=== PATIENT | female | born 1930 | race Caucasian/White ===

== ENCOUNTER 2016-08-19 13:00 | Inpatient (IN) | payer OTHER ==
[2016-08-19 13:52] LABS: MANUAL DIFF NEEDED? NO
--- NOTE | 2016-08-19 13:57 | PROVIDER DOCUMENTATION ---
HPI-Respiratory General - General Chief Complaint: Shortness of Breath Stated Complaint: SOB Time Seen by Provider: 08/19/16 13:48 Source: patient Allergies/Adverse Reactions: Patient Allergies Allergy/AdvReac Type Severity Reaction Status Date / Time codeine Allergy Severe ITCHING Verified 01/06/16 12:28 hydrocodone bitartrate * Allergy Severe ITCHING Verified 01/06/16 12:28 [From Lorcet ] morphine Allergy Severe ITCHING Verified 01/06/16 12:28 Sulfa (Sulfonamide Allergy Severe NAUSEA/VOMI Verified 01/06/16 12:28 Antibiotics) TING Home Medications: Amitriptyline [Elavil] 25 mg PO TID 05/26/13 Atorvastatin Calcium [Lipitor] 80 mg PO HS 05/26/13 Fluticasone/Salmeterol [Advair 500-50 Diskus] 2 puff INH BID 05/26/13 Omeprazole [Prilosec] 20 mg PO BID 05/26/13 Amlodipine Besylate [Norvasc] 5 mg PO DAILY 09/10/14 Aspirin [Ecotrin] 81 mg PO DAILY 09/10/14 Isosorbide Mononitrate E.r. [Imdur] 30 mg PO DAILY 09/10/14 Carvedilol 6.25 mg PO DAILY 08/25/15 Albuterol Sulfate Inhaler [Ventolin Hfa] 2 puff INH PRN PRN 07/20/16 Clopidogrel Bisulfate [Plavix] 75 mg PO DAILY 07/20/16 Diphenhydramine [Benadryl] 25 mg PO BID 07/20/16 LISINOpril [Prinivil] 40 mg PO DAILY 07/20/16 Levothyroxine Sodium [Synthroid] 137 mcg PO DAILY 07/20/16 - History of Present Illness-Resp Nature of Presenting Problem: 86 yo F presents to the ER with complaint of cough, SOB, lower leg edema, and painful inspiration x4 days. States she has pain when she takes a deep breath, the pain radiates to her back. Also has tenderness to palpation in her chest. Wears oxygen at home. Onset/Duration: reports: 4 days ago Cough Quality/Degree: reports: moderate, dry cough Associated Symptoms: reports: chest pain/soreness, cough, fever/chills, hurts to breathe, shortness of breath, short of breath Review of Systems - Adult - REVIEW OF SYSTEMS - ADULT Constitutional: reports: chills. denies: fever Eyes: reports: no symptoms reported Ears, Nose, Mouth & Throat: reports: no symptoms reported Cardiovascular: denies: chest pain, palpitations Respiratory: reports: cough, shortness of breath Gastrointestinal: denies: diarrhea, nausea, vomiting Genitourinary: reports: no symptoms reported Musculoskeletal: reports: no symptoms reported Integumentary: reports: no symptoms reported Neurological: reports: no symptoms reported Psychiatric: reports: no symptoms reported Endocrine: reports: no symptoms reported Hematologic/Lymphatic: reports: no symptoms reported Allergic/Immunologic: reports: no symptoms reported All Other Systems: Reviewed and Negative Past History - Adult - PAST MEDICAL HISTORY-ADULT Review of Records: reports: Nursing Assessment Review, Medications Reviewed Cardiovascular: reports: HTN, hyperlipidemia Respiratory: reports: asthma, COPD, sleep apnea Genitourinary: reports: kidney stones (hx of) Musculoskeletal: reports: osteoporosis Endocrine/Immune: reports: thyroid disorder - PRIOR SURGERIES/PROCEDURES Surgical/Procedure History: reports: recent surgery (Stents), appendectomy, cholecystectomy, hysterectomy, , joint replacement (Total knee replacement), other (Cataract Sx; carpal tunnel; bladder tac; cysts removed from abdomen) - IMMUNIZATION STATUS Childhood Immunizations: See Nurse Assessment Flu Vaccine: See Nurse Assessment - FAMILY HISTORY Family History: reviewed, not pertinent Physical Exam-General - PHYSICAL EXAM-ADULT Initial Vital Signs Reviewed: Yes - CONSTITUTIONAL General Appearance: alert, no apparent distress - EYES Eyes: PERRL/EOMI, pink conjunctivae - HEAD, EARS, NOSE, MOUTH & THROAT HENMT: normocephalic/atraumatic, normal ENT inspection - NECK Neck: supple, normal inspection - RESPIRATORY Respiratory: no respiratory distress, pain on inspiration - CARDIOVASCULAR Cardiovascular: normal peripheral pulses, regular rate, rhythm - GASTROINTESTINAL (ABDOMEN) Abdominal Exam: normal bowel sounds, non tender, soft - MUSCULOSKELETAL Back Exam: no CVA tenderness, no vertebral tenderness Extremity: normal gait, normal inspection - SKIN Integumentary: normal color, warm/dry - NEUROLOGIC Neurologic: grossly normal, no motor/sensory deficits - PSYCHIATRIC Psych/Mental Status: normal mood/affect, normal thought content, normal thought process, oriented x 3 Progress - PLAN OF CARE/RESULTS Progress/Plan/Lab Results: Vital Signs Temp Pulse Resp BP Pulse Ox 08/19/16 13:03 97.8 F 86 20 155/86 96 codeine Allergy (Severe, Verified 01/06/16 12:28) ITCHING hydrocodone bitartrate * [From [place] ] Allergy (Severe, Verified 12:28) ITCHING morphine Allergy (Severe, Verified 01/06/16 12:28) ITCHING Sulfa (Sulfonamide Antibiotics) Allergy (Severe, Verified 01/06/16 12:28) NAUSEA/VOMITING Amitriptyline [Elavil] 25 mg PO TID 05/26/13 Atorvastatin Calcium [Lipitor] 80 mg PO HS 05/26/13 Fluticasone/Salmeterol [Advair 500-50 Diskus] 2 puff INH BID 05/26/13 Omeprazole [Prilosec] 20 mg PO BID 05/26/13 Amlodipine Besylate [Norvasc] 5 mg PO DAILY 09/10/14 Aspirin [Ecotrin] 81 mg PO DAILY 09/10/14 Isosorbide Mononitrate E.r. [Imdur] 30 mg PO DAILY 09/10/14 Carvedilol 6.25 mg PO DAILY 08/25/15 Albuterol Sulfate Inhaler [Ventolin Hfa] 2 puff INH PRN PRN 07/20/16 Clopidogrel Bisulfate [Plavix] 75 mg PO DAILY 07/20/16 Diphenhydramine [Benadryl] 25 mg PO BID 07/20/16 LISINOpril [Prinivil] 40 mg PO DAILY 07/20/16 Levothyroxine Sodium [Synthroid] 137 mcg PO DAILY 07/20/16 Tramadol HCl [Ultram] 50 mg PO Q4H PRN PRN #15 tablet 07/26/16 Laboratory 08/19/16 08/19/16 13:51 13:51 WBC 11.01 H RBC 3.90 L Hgb 12.3 Hct 38.4 MCV 98.5 MCH 31.5 H MCHC 32.0 L RDW Std Deviation 13.1 Plt Count 535 H MPV 10.1 Immature Gran % (Auto) 1.9 H Neut % (Auto) 57.3 Lymph % (Auto) 26.2 [place] % (Auto) 8.9 Eos % (Auto) 4.4 Baso % (Auto) 1.3 H Immature Gran # (Auto) 0.21 H Neut # 6.32 Lymph # 2.88 [place] # 0.98 H Eos # 0.48 Baso # 0.14 Sodium 133 L Potassium 3.8 Chloride 98 Carbon Dioxide 23 L Anion Gap 12 BUN 9 Creatinine 0.6 Estimated GFR/1.73 m2 > 60 BUN/Creatinine Ratio 15 Glucose 101 Calculated Osmolality 265 Calcium 8.7 L Magnesium 1.6 Total Bilirubin 0.30 AST 40 H ALT 36 Alkaline Phosphatase 93 Creatine Kinase 50 Total Protein 6.5 Albumin 2.8 L Globulin 4.0 Albumin/Globulin Ratio 1.0 Orders Category Date Time Status Cardiac Monitoring DIRECTED Care 08/19/16 13:12 Active Oxygen Therapy- ED Nursing DIRECTED Care 08/19/16 13:12 Active CHEST-2 VIEWS [RAD] Stat Exams 08/19/16 13:12 Ordered BNP [PRO B-NATRIURETIC PEPTIDE] Stat Lab 08/19/16 13:51 Received CBC WITH DIFF [HEME] Stat Lab 08/19/16 13:51 Completed CK PROFILE [SP CHEM] Stat Lab 08/19/16 13:51 Completed COMPREHENSIVE METABOLIC PANEL [CHEM] Stat Lab 08/19/16 13:[address] D-D[address] [COAG] Stat Lab 08/19/16 13:51 Received MAGNESIUM [CHEM] Stat Lab 08/19/16 13:51 Completed TROPONIN T Stat Lab 08/19/16 13:51 Received EKG [EKG] Stat Ther 08/19/16 13:10 Ordered - XRAY 1 XRAY Study: Chest Impression: Abnormal (infiltrate, per Dr. Rincon) - CONSULTS/PCP/HOSPITALIST Notification #1 *Consult/PCP/Hospitalist*: Dr. Carpenter Time Discussed: 14:25 Consult Disposition: Admit Departure - Departure Time of Disposition Order: 14:29 DIAGNOSIS: Pleurisy Disposition: ADMITTED INPATIENT 09 Certified Medical Emergency: Emergent Condition: Stable Attestation - Scribe Verification/Attestation Scribe:: Mikayla Wu Acting as Scribe for:: Jordon Rincon Scribe documention review:: This chart was documented by a scribe and accurately reflects the service the provider performed and the decisions made by the provider.
[2016-08-19 14:11] LABS: AGAP 12; ALBUMIN 2.8 g/dL (3.5-5.0); ALKALINE PHOSPHATASE 93 U/L (32-104); BUN 9 mg/dL (8-22); CALCIUM 8.7 mg/dL (8.8-10.2); CHLORIDE 98 mmol/L (98-107); CK PROFILE 50 U/L (24-173); COSMO 265; GOT 40 U/L (10-30); GPT 36 U/L (10-36); MAGNESIUM 1.6 mg/dL (1.5-2.7); POTASSIUM 3.8 mmol/L (3.5-5.1); SODIUM 133 mmol/L (136-145); TCO2 23 mmol/L (25-35); TOTAL PROTEIN 6.5 g/dL (6.3-8.3)
[2016-08-19 14:21] LABS: BASO% 1.3 % (0.0-0.8); EOS# 0.48 X1000 (0.0-0.7); EOS% 4.4 % (0.0-10.0); HEMATOCRIT 38.4 % (37.0-47.0); HEMOGLOBIN 12.3 g/dL (12.0-16.0); IMM GRAN# 0.21 X1000 (0.0-0.04); IMM GRAN% 1.9 % (0.0-0.5); LYMPH# 2.88 X1000 (1.2-3.4); LYMPH% 26.2 % (20.5-51.1); MCH 31.5 PG (27-31); MCV 98.5 FL (81-99); MONO# 0.98 X1000 (0.11-0.59); MONO% 8.9 % (1.7-9.3); MPV 10.1 FL (7.4-10.4); NEUT% 57.3 % (42.2-75.2); PLT 535 X1000 (130-400)
[2016-08-19] MEDS ORDERED: VENTOLIN HFA INH PRN (14:29)
[2016-08-19] MEDS ORDERED: NS 1,000 ML IV SCH ×2 (14:30→17:00)
--- NOTE | 2016-08-19 15:24 | Diag Imaging Result Document ---
PROCEDURE NAME: CHEST-2 VIEWS - 08/19/2016 TWO VIEWS OF THE CHEST: FINDINGS: There are patchy alveolar opacities present in the right lower lobe, which were not present on 06/05/2016. IMPRESSION: Bronchopneumonia, right lower lobe. Advise followup until clear.
[2016-08-19] MEDS: ELAVIL PO SCH (16:11)
[2016-08-19] MEDS: FIORICET PO PRN ×2 (16:27→23:33)
[2016-08-19] MEDS: LEVAQUIN 750 MG/D5W 150 ML IV SCH (17:40)
--- NOTE | 2016-08-19 18:06 | HISTORY AND PHYSICAL ---
PRIMARY CARE PHYSICIAN: Dr. Akin Padilla. CHIEF COMPLAINT: Shortness of breath. HISTORY OF PRESENT ILLNESS: This is a 86-year-old female with a history of COPD, obstructive sleep apnea, hypertension. She presented to the emergency room complaining of cough, increasing dyspnea, with right-sided chest pain that radiates around to her back. She states this started about a week ago, and over the last 3 days symptoms have increased. During the night and then up into the morning today that she slept sat up in a recliner, and just dozed. She does normally wear oxygen at 2 L. She did not have to increase her oxygen flow. She does state that she has had episodes of freezing, some body aches, and then she will sweat and feel better. Over the last 24 hours she has developed a frontal headache with increased sinus drainage. Her chest x- ray revealed a right lower lobe bronchopneumonia. She is being admitted for further evaluation and treatment. PAST MEDICAL HISTORY: Asthma, CHF, COPD, hypertension, kidney stones, obstructive sleep apnea, hypothyroid. PAST SURGICAL HISTORY: Right total knee, hysterectomy, cholecystectomy. SOCIAL HISTORY: She denies alcohol, tobacco, or illicit drug use. ALLERGIES: Codeine, hydrocodone, morphine, and sulfa. HOME MEDICATIONS: A list will be obtained. PHYSICAL EXAMINATION: GENERAL: This is an 86-year-old female, who is sitting in the bed with no distress. VITAL SIGNS: Blood pressure is 140/81, with a heart rate of 84, respirations are 18, temperature is 97.8 degrees oral, with oxygen saturations of 98% on 2 L nasal cannula. CARDIOVASCULAR: Regular rate and rhythm. S1 and S2 appreciated. PULMONARY: Breath sounds are distant. She does have some crackles on the right with no increased work of breathing noted. Chest wall is tender to palpation about the area of the right breast. GASTROINTESTINAL: Abdomen is soft, nontender, nondistended. Bowel sounds in all 4 quadrants. BACK: No CVAT. No spine tenderness. MUSCULOSKELETAL: Good range of motion of joints. EXTREMITIES: No clubbing, cyanosis, or edema. Pulses are palpable x4. Calves are nontender. SKIN: Warm and dry. NEUROLOGIC: She is alert and oriented. DIAGNOSTICS: Labs: WBC is 11.01, with hemoglobin 12.3, hematocrit 38.4, and platelets of 535,000. Sodium is 133, potassium 3.8, BUN 9, creatinine 0.6, with a glucose of 101. Her D-dimer is 2.70. Troponin is 0.112, with a proBNP of 2178. ASSESSMENT AND PLAN: 1. Right lower lobe pneumonia. 2. Chronic obstructive pulmonary disease with moderate exacerbation. 3. Leukocytosis. 4. Elevated D-dimer. 5. Elevated troponin. 6. Headache, questionable sinusitis. 7. Hypothyroid. She will be admitted to the hospital. She will continue with supplemental oxygen. We will start breathing treatments q.4 hours. We will continue her home inhalers. We will trend troponins. Cardiology will be consulted if necessary, and consult Cardiology She will be placed on telemetry. CTA pulmonary will be obtained. We will obtain blood cultures. We will begin antibiotic coverage with Levaquin. If necessary antibiotics can be changed according to sensitivities. For DVT prophylaxis we will use SCDs, and for GI prophylaxis we will continue her Prilosec. Further treatments pending hospital course. Dictated by MARK Capps for Osmany Carpenter MD
[2016-08-19] MEDS: DUONEB (A & A) INH SCH ×2 (19:39→23:04)
[2016-08-19] MEDS: BENADRYL PO SCH (22:51)
[2016-08-19] MEDS: LIPITOR PO SCH (22:51)
[2016-08-19] MEDS: PRILOSEC PO SCH (22:52)
[2016-08-19] MEDS: TESSALON PO PRN (23:33)
[2016-08-20] MEDS: DUONEB (A & A) INH SCH ×6 (03:38→20:18)
[2016-08-20] MEDS: ULTRAM PO PRN (04:08)
[2016-08-20] MEDS ORDERED: BLISTEX MEDICATED BERRY LIP BALM TOP PRN (04:10)
[2016-08-20] MEDS: PRILOSEC PO SCH ×2 (06:52→21:00)
[2016-08-20] MEDS: SYNTHROID PO SCH ×2 (06:52)
[2016-08-20] MEDS ORDERED: SYNTHROID PO SCH (09:00)
[2016-08-20 09:35] LABS: HEMATOCRIT 34.6 % (37.0-47.0); HEMOGLOBIN 11.5 g/dL (12.0-16.0); MCHC 33.2 g/dL (33-37); MCV 93.3 FL (81-99); MPV 9.3 FL (7.4-10.4); RBC 3.71 XMIL (4.2-5.4)
[2016-08-20 10:13] LABS: AGAP 10; ALBUMIN 2.7 g/dL (3.5-5.0); ALKALINE PHOSPHATASE 77 U/L (32-104); BUN 4 mg/dL (8-22); CALCIUM 8.1 mg/dL (8.8-10.2); CHLORIDE 95 mmol/L (98-107); CK PROFILE 45 U/L (24-173); COSMO 261; GOT 32 U/L (10-30); GPT 27 U/L (10-36); POTASSIUM 3.4 mmol/L (3.5-5.1); SODIUM 131 mmol/L (136-145); TCO2 26 mmol/L (25-35); TOTAL PROTEIN 5.1 g/dL (6.3-8.3)
[2016-08-20] MEDS: BENADRYL PO SCH (10:37)
[2016-08-20] MEDS: IMDUR PO SCH (10:37)
[2016-08-20] MEDS: PLAVIX PO SCH (10:37)
[2016-08-20] MEDS: ASPIRIN EC PO SCH (10:37)
[2016-08-20] MEDS: PRINIVIL PO SCH (10:38)
[2016-08-20] MEDS: NORVASC PO SCH (10:38)
[2016-08-20] MEDS: COREG PO SCH (10:38)
[2016-08-20] MEDS: ELAVIL PO SCH ×3 (10:38→17:43)
--- NOTE | 2016-08-20 11:00 | Diag Imaging Result Document ---
PROCEDURE NAME: ANGIOGRAM/PULMONARY ARTERIES - 08/19/2016 CT OF THE CHEST WITH INTRAVENOUS CONTRAST: FINDINGS: The right brachiocephalic artery appears to extend to some extent into the base of the neck with the subclavian looping back inferiorly. The esophagus is distended throughout its course with an air fluid level inferiorly. There is a hiatal hernia. Fluid is present in the stomach. There is considerable beam-hardening artifact and respiratory motion, but there are no definite central pulmonary arterial filling defects. There are patchy ill-defined opacities, particularly in the right upper lobe, the lingula, and both lower lobes. There is dense alveolar opacification present in the right base. Some emphysematous blebs are present in the left posterior costophrenic sulcus. The heart is enlarged with enlargement of the left atrium and ventricle. There is calcification in the mitral valve annulus and there is also some dilatation of the root of the aorta. There is no evidence of dissection. The ascending aorta measures up to 4 cm. There has been previous sternotomy. IMPRESSION: No definite evidence of pulmonary emboli. Dilatation of the esophagus which may be patulous. The possibility of aspiration pneumonia cannot be excluded.
--- NOTE | 2016-08-20 15:57 | PROGRESS NOTE ---
DATE: 08/20/2016 SUBJECTIVE: The patient states that she is breathing a little better, although she has had a persistent cough that is wearing her out. She denies palpitations, dizziness, any nausea or vomiting. OBJECTIVE: Vital Signs: Blood pressure is 156/77 with a heart rate of 80, respirations are 20, temperature is 98.2 degrees oral with oxygen saturation of 96-99% on 2 L nasal cannula. Cardiovascular: Regular rate and rhythm. S1 and S2 appreciated. Pulmonary: Breath sounds are distant. She has some crackles on the right with no increased work of breathing noted. Her chest wall continues to be tender to palpation at the area of the right breast. Gastrointestinal: Abdomen is soft, nontender, nondistended with bowel sounds in all 4 quadrants. Extremities: No clubbing, cyanosis, or edema. Pulses are palpable x4. Calves are nontender. DIAGNOSTICS: WBC is 11.6 with a hemoglobin 11.5, hematocrit 34.6, platelets of 630,000. Sodium is 131, potassium 3.4, BUN is 4, creatinine is 0.5, with a glucose of 122. Her troponins were 0.112, #2 was 0.135, and 0.045. Pulmonary arteriogram revealed no definite evidence of a pulmonary emboli, dilatation of esophagus which may be patulous with an air-fluid level inferiorly. There is a hiatal hernia. Ill-defined opacities in the right upper lobe lingula and both lower lobes there is _ blebs in the left posterior costophrenic sulcus. ASSESSMENT AND PLAN: 1. Right lower lobe pneumonia possibly aspiration, as per CTA read. 2. Chronic obstructive pulmonary disease with moderate exacerbation. 3. Leukocytosis. 4. Elevated D-dimer with no evidence of PE per CT scan. 5. Elevated troponin, which is decreasing. 6. Headache, questionable sinusitis. 7. Hypothyroid. 8. Hiatal hernia. We will continue with her current regimen, but we will add Zosyn as there is a question of aspiration pneumonia. Hopefully she can be changed to p.o. medications. We will continue her current regimen. We will encourage GI follow up on an outpatient basis due to the distended esophagus and the hiatal hernia. Dictated by MARK Capps for Osmany Carpenter MD due to elevation in troponin, with cad s/p cabg and pci/stent in 01/02 will get echo and cardiology evaluation [facility] MTDD
[2016-08-20] MEDS ORDERED: KLOR-CON PO ONE (16:46)
[2016-08-20] MEDS: LEVAQUIN 750 MG/D5W 150 ML IV SCH (17:43)
[2016-08-20] MEDS: TESSALON PO PRN (17:45)
[2016-08-20] MEDS: PATIENT'S OWN MED INH SCH (18:22)
[2016-08-20] MEDS: TYLENOL PO PRN (21:00)
[2016-08-20] MEDS: LIPITOR PO SCH (21:00)
[2016-08-21] MEDS: DUONEB (A & A) INH SCH ×7 (00:05→23:04)
[2016-08-21] MEDS: PATIENT'S OWN MED INH SCH ×3 (03:09→21:18)
[2016-08-21] MEDS: SYNTHROID PO SCH ×2 (06:25)
[2016-08-21] MEDS: PRILOSEC PO SCH ×3 (06:25→21:19)
[2016-08-21 07:08] LABS: HEMATOCRIT 37.4 % (37.0-47.0); MCH 30.6 PG (27-31); MCHC 32.1 g/dL (33-37); MCV 95.4 FL (81-99); MPV 9.5 FL (7.4-10.4); RBC 3.92 XMIL (4.2-5.4)
[2016-08-21 07:23] LABS: AGAP 10; BUN 4 mg/dL (8-22); CALCIUM 8.5 mg/dL (8.8-10.2); CHLORIDE 100 mmol/L (98-107); COSMO 271; POTASSIUM 4.2 mmol/L (3.5-5.1); SODIUM 137 mmol/L (136-145); TCO2 27 mmol/L (25-35)
[2016-08-21] MEDS: ELAVIL PO SCH ×3 (09:17→17:08)
[2016-08-21] MEDS: ASPIRIN EC PO SCH (09:18)
[2016-08-21] MEDS: IMDUR PO SCH (09:18)
[2016-08-21] MEDS: PRINIVIL PO SCH (09:18)
[2016-08-21] MEDS: PLAVIX PO SCH (09:18)
[2016-08-21] MEDS: COREG PO SCH (09:18)
[2016-08-21] MEDS: NORVASC PO SCH (09:18)
[2016-08-21] MEDS: TESSALON PO PRN (10:23)
[2016-08-21] MEDS: ULTRAM PO PRN ×2 (10:23→21:06)
[2016-08-21] MEDS: TYLENOL PO PRN (10:23)
--- NOTE | 2016-08-21 14:56 | EKG Report ---
Test Performed on : 08/21/2016 2:48:26 PM Test Reason : cp Blood Pressure : / mmHG Vent. Rate : 077 BPM Atrial Rate : 077 BPM P-R Int : 166 ms QRS Dur : 094 ms QT Int : 420 ms P-R-T Axes : 003 -26 -09 degrees QTc Int : 475 ms Normal sinus rhythm. Inferior infarct , age undetermined Cannot rule out Anterior infarct (cited on or before 15-JAN-2016) Abnormal ECG When compared with ECG of 15-JAN-2016 02:56, Significant changes have occurred Confirmed by Jordon Rincon MD ([id number]) on 08/21/2016 11:48:52 PM
[2016-08-21] MEDS: FIORICET PO PRN ×2 (15:06→22:03)
--- NOTE | 2016-08-21 15:17 | CONSULTATION ---
DATE OF CONSULTATION: 08/21/2016 INDICATION: Chest pain, elevated troponin. HISTORY OF PRESENT ILLNESS: Ms. Cavanaugh is an 86-year-old white female with a history of coronary bypass, coronary artery disease and PCI around 6-9 months ago. She came in with complaints of cough, chills and chest pain that began in the last 2-3 days. She has a history of COPD and obstructive sleep apnea. She reports these symptoms and has been diagnosed and treated with pneumonia during the course of the hospitalization. She reports no chest discomfort other than what she had around the time of her PCI. Since the onset of these symptoms, she has reported shortness of breath as well as a pleuritic type chest pain. There has been no exertional component to her chest pain. She denies any significant orthopnea. PAST MEDICAL HISTORY: Is significant for: 1. Asthma. 2. COPD. 3. Hypertension. 4. Kidney stones. 5. Coronary artery disease with previous bypass grafting as well as previous PCI. SOCIAL HISTORY: No alcohol, tobacco or illicit drugs. FAMILY HISTORY: Significant for hypertension. REVIEW OF SYSTEMS: A 10-system review of systems is negative except for those things mentioned in the HPI. PHYSICAL EXAMINATION: She is afebrile, heart rate is 60s-80s, blood pressure is 115/72. Generally, she is in no acute distress. HEENT, oropharynx is moist. Normal dentition. Eye examination, pink conjunctivae, white sclerae. Neck examination shows no obvious thyromegaly or thyroid tenderness. Cardiovascular, she is in a regular rate and rhythm. She has no obvious murmurs. She has no S3. She has no lower extremity edema. Her chest exam is clear bilaterally. She has no increased work of breathing. Her abdomen soft, nontender, nondistended. No obvious organomegaly. Her skin exam is warm and dry throughout without any rashes. Neurologically, she is moving all extremities well. Cranial nerves II-XII are intact without any sensation deficits. Psychiatric, alert and oriented, pleasant. She has normal mood and affect. PERTINENT DATA: Her chest CT demonstrated no definite evidence of pulmonary emboli, dilatation of the esophagus, a possibility of aspiration pneumonia. She had an EKG back in December, but she does not have a present EKG during this hospitalization that I have been able to find in the charts or in the computer record. Strips from telemetry demonstrate some soft, nonsustained ventricular tachycardia at 9:00 a.m. yesterday morning. Her laboratory data shows white count of 11.7, hematocrit 37.4, platelet count 62,000. Sodium 137, potassium 4.2, BUN 4, creatinine 0.5. Her cardiac enzymes were elevated on admission at 0.112, subsequent 0.135 and since then 0.045. ASSESSMENT: 1. Chest pain in a patient with a history of coronary artery disease. 2. Likely pneumonia. PLAN: Symptoms are most consistent a pneumonia, but she does have an elevated troponin. Considering her history of coronary disease and present pneumonia, I would likely recommend myocardial perfusion imaging. We will first check an EKG here though during this hospitalization. Her echocardiogram is pending. We will likely plan on myocardial pericardial imaging in the next 48 hours. I will follow up on the EKG result.
--- NOTE | 2016-08-21 16:02 | PROGRESS NOTE ---
DATE: 08/21/2016 SUBJECTIVE: Patient has no focal complaints. OBJECTIVE: Vital signs: Blood pressure 114/52, heart rate 64, respiratory 18, temperature 95 degrees, 96% on 2 L. Cardiovascular: Regular rate and rhythm. Pulmonary: Bilateral breath sounds. Clear to auscultation. GI: Soft, nontender, nondistended. Bowel sounds are positive. LABORATORY DATA: White count is still around 11. Chemistry: CMP normal. Troponins are still up a little bit. PROBLEM LIST: 1. Pneumonia. We will continue empiric antibiotics. She is on Levaquin. This will be day 3 and breathing treatments. 2. Elevated troponin. Dr. Gallegos evaluated the patient. Recommending Lexiscan in the next 1 or 2 days. We will continue to follow closely. We need to work on her getting up out of bed, which I think she did get up a little bit of the bed today. She is requesting something for pain, specifically Demerol because "that is all that works". She is allergic to everything else. I gave her a very low dose 12.5 every 6 hours as needed. Other than that, patient is stabilizing. Hopefully discharge in next 1-2 days.
[2016-08-21] MEDS: DEMEROL IV PRN (17:08)
[2016-08-21] MEDS: LEVAQUIN 750 MG/D5W 150 ML IV SCH (17:08)
[2016-08-21] MEDS: LIPITOR PO SCH ×2 (19:43→21:19)
[2016-08-22] MEDS: DUONEB (A & A) INH SCH ×6 (03:29→22:45)
[2016-08-22] MEDS: SYNTHROID PO SCH ×2 (06:04)
[2016-08-22] MEDS: PRILOSEC PO SCH ×2 (06:05→20:26)
[2016-08-22 06:40] LABS: HEMATOCRIT 39.8 % (37.0-47.0); HEMOGLOBIN 12.6 g/dL (12.0-16.0); MCH 30.3 PG (27-31); MCHC 31.7 g/dL (33-37); MCV 95.7 FL (81-99); MPV 9.6 FL (7.4-10.4); RBC 4.16 XMIL (4.2-5.4)
[2016-08-22 06:57] LABS: AGAP 9; BUN 5 mg/dL (8-22); CALCIUM 8.7 mg/dL (8.8-10.2); CHLORIDE 99 mmol/L (98-107); COSMO 271; POTASSIUM 4.1 mmol/L (3.5-5.1); SODIUM 137 mmol/L (136-145); TCO2 28 mmol/L (25-35)
--- NOTE | 2016-08-22 07:15 | Extremity Venous Study ---
PROCEDURE NAME: Venous U/S Bilateral Legs - 08/21/2016 BILATERAL VENOUS ULTRASOUND OF THE LOWER EXTREMITIES: FINDINGS: The deep veins of the lower extremities are compressible with evidence of obstruction to color Doppler flow. There is an irregular hypoechoic area in the popliteal fossa on the left which may represent a ruptured Oconnor's cyst. IMPRESSION: 1. No evidence of deep venous thrombosis. 2. Possible ruptured Oconnor's cyst on the left.
[2016-08-22] MEDS: PATIENT'S OWN MED INH SCH (08:21)
[2016-08-22] MEDS: TESSALON PO PRN (09:51)
[2016-08-22] MEDS: ASPIRIN EC PO SCH (09:51)
[2016-08-22] MEDS: ULTRAM PO PRN (09:51)
[2016-08-22] MEDS: ELAVIL PO SCH ×3 (09:51→17:36)
[2016-08-22] MEDS: PLAVIX PO SCH (09:51)
[2016-08-22] MEDS: PRINIVIL PO SCH (09:51)
[2016-08-22] MEDS: NORVASC PO SCH (09:51)
[2016-08-22] MEDS: COREG PO SCH (09:52)
[2016-08-22] MEDS: IMDUR PO SCH (09:53)
--- NOTE | 2016-08-22 13:18 | PROGRESS NOTE ---
DATE: 08/22/2016 SUBJECTIVE: The patient has no complaints today. She denies palpitations, chest pain, shortness of breath. OBJECTIVE: Vital Signs: Blood pressure is 133/59 with a heart rate of 83, respirations are 18, temperature is 97.8 degrees oral with oxygen saturations of 95-97% on 2 L nasal cannula. Cardiovascular: Regular rate and rhythm. S1, S2 appreciated. Pulmonary: Breath sounds are clear. No increased work of breathing noted. Gastrointestinal: Abdomen is soft, nontender, nondistended with bowel sounds in all 4 quadrants. Extremities: No clubbing, cyanosis or edema. Calves are nontender. Pulses are palpable x4. LABS: WBC is 11.06 with hemoglobin 12.6, hematocrit 39.8, and platelets of 637,000. Sodium is 137, potassium 4.1, BUN 5, creatinine 0.6 with a glucose of 93. ASSESSMENT AND PLAN: 1. Chest pain in a patient with a history of coronary artery disease. 2. Pneumonia. 3. Elevated troponin. We will continue with her current regimen. Her echocardiogram is pending as well as myocardial perfusion imaging. This will be scheduled per Cardiology's recommendation. Dictated by MARK Capps for Osmany Carpenter MD
[2016-08-22] MEDS ORDERED: LACTULOSE PO ONE (13:24)
--- NOTE | 2016-08-22 16:42 | ECHO REPORT ---
ORDER DATE: 08/21/2016 INDICATION: Elevated troponin. Pneumonia. FINDINGS: 1. Right atrium is overall poorly visualized. 2. Trace tricuspid regurgitation. RV systolic pressure of 27. 3. Poor visualization of the right ventricle. 4. No significant pulmonic insufficiency. 5. Mild left atrial enlargement at 4.6 cm. 6. There is no mitral prolapse. Mild mitral regurgitation. Mild mitral annular calcification is noted. 7. Normal LV size, end-diastolic dimension of 5.4. Normal wall thicknesses with a posterior and interventricular septal wall thickness 1.1 cm each. Normal LV systolic function. Estimated EF 55%. There is no obvious focal wall motion abnormalities. 8. Aortic valve is calcified with restriction in motion. This is consistent with what appears to be moderate aortic stenosis by valve areas. By continuity equation the valve area is 1.1 cm2. Peak gradient across valve is 25 with a mean of 14. There is mild aortic insufficiency. 9. Aorta appears normal visualized segments. 10. No pericardial effusion is identified.
[2016-08-22] MEDS: DEMEROL IV PRN (17:35)
[2016-08-22] MEDS: LEVAQUIN 750 MG/D5W 150 ML IV SCH (17:36)
[2016-08-22] MEDS: MIRALAX PO SCH (19:29)
[2016-08-22] MEDS: LIPITOR PO SCH (20:26)
[2016-08-22] MEDS: FIORICET PO PRN (21:17)
[2016-08-23] MEDS: DEMEROL IV PRN ×3 (01:18→20:26)
[2016-08-23] MEDS: DUONEB (A & A) INH SCH ×5 (03:53→18:18)
[2016-08-23] MEDS: SYNTHROID PO SCH ×2 (06:02→06:03)
[2016-08-23] MEDS: PRILOSEC PO SCH ×2 (06:02→20:17)
[2016-08-23] MEDS: PATIENT'S OWN MED INH SCH ×2 (07:17→20:19)
[2016-08-23 07:20] LABS: HEMATOCRIT 37.1 % (37.0-47.0); HEMOGLOBIN 11.8 g/dL (12.0-16.0); MCH 30.9 PG (27-31); MCHC 31.8 g/dL (33-37); MCV 97.1 FL (81-99); MPV 9.6 FL (7.4-10.4); RBC 3.82 XMIL (4.2-5.4)
--- NOTE | 2016-08-23 08:39 | Diag Imaging Result Document ---
PROCEDURE NAME: CHEST-PORTABLE - 08/23/2016 CHEST SINGLE VIEW: COMPARISON: 08/19/2016. FINDINGS: There is stable cardiomegaly and calcified granuloma left lower lobe. There are median sternotomy wires, the superior wire is fractured. There has been mild improvement in the right lung infiltrates. There is residual opacity and additional followup is recommended. The pulmonary vasculature is not congested. No effusions are identified. IMPRESSION: Improving right lung infiltrates. Continued followup recommended to document complete clearing.
[2016-08-23] MEDS: IMDUR PO SCH (13:45)
[2016-08-23] MEDS: COREG PO SCH (13:45)
[2016-08-23] MEDS: PRINIVIL PO SCH (13:45)
[2016-08-23] MEDS: MIRALAX PO SCH (13:45)
[2016-08-23] MEDS: ELAVIL PO SCH ×3 (13:46→17:13)
[2016-08-23] MEDS: PLAVIX PO SCH (13:46)
[2016-08-23] MEDS: ASPIRIN EC PO SCH (13:46)
[2016-08-23] MEDS: NORVASC PO SCH (13:47)
[2016-08-23] MEDS ORDERED: LEXISCAN ONE (14:43)
--- NOTE | 2016-08-23 15:49 | Diag Imaging Result Document ---
PROCEDURE NAME: MYOCARDIAL PERF SCAN, STR/REST - 08/23/2016 CARDIOLITE STRESS TEST: Lexiscan by Dr. Rincon please see detailed stress report. RESULTS: Following Lexiscan infusion, Cardiolite was injected. 10.9 mCi of Cardiolite was injected for the rest phase, 30.9 mCi of Cardiolite was injected for the stress phase. Gated SPECT images were obtained in standard views. Images revealed significant chest wall attenuation. There is a low-grade, small-sized, fixed defect in the left ventricular apex. There is no evidence of ischemia. Left ventricular ejection fraction by gated SPECT was 73%. This could represent attenuation defect versus scar. CONCLUSIONS: 1. No chest pain. 2. Negative stress electrocardiogram. Stress test by Dr. Rincon. 3. Myocardial perfusion images revealed no evidence of ischemia. 4. There is no evidence of ischemia. 5. Low-grade small-sized fixed defect in the left ventricular apex associated with significant chest wall attenuation and normal wall motion. This is likely to represent attenuation defect or scar. Left ventricular ejection fraction 73%.
[2016-08-23] MEDS: LEVAQUIN 750 MG/D5W 150 ML IV SCH (17:13)
[2016-08-23] MEDS: ULTRAM PO PRN (17:13)
[2016-08-23] MEDS: LIPITOR PO SCH (20:18)
[2016-08-23] MEDS ORDERED: CALMOSEPTINE OINTMENT TOP PRN (21:15)
--- NOTE | 2016-08-23 21:24 | PROGRESS NOTE ---
DATE: 08/23/2016 SUBJECTIVE: Patient without real complaints today. States she is having some shortness of breath. She is having pain in her back, arms, legs which this is pretty normal for her. However, it is causing difficulty for her to ambulate. OBJECTIVE: Vital Signs: Reviewed. Temperature 97 degrees, pulse 86, respiratory rate 18, blood pressure 118/67. General: Patient well developed, well nourished. Currently in no real respiratory distress. She is awake, alert, oriented. Neck: Supple. CARDIOVASCULAR: Regular rate. Chest: Clear. Nonlabored. Abdomen: Soft nondistended. Extremities: Moves all extremities. Neurologic: No changes. DIAGNOSTIC DATA: Pending. Stress test pending. ASSESSMENT: 1. Chest pain. 2. Chronic chronic obstructive pulmonary disease. 3. Pneumonia. Improving. PLAN: We will continue patient on IV antibiotics. We will continue to treat her pneumonia, hopefully home in 1-2 days.
[2016-08-24] MEDS: DUONEB (A & A) INH SCH ×5 (00:51→14:59)
[2016-08-24] MEDS: ULTRAM PO PRN (01:56)
[2016-08-24] MEDS: DEMEROL IV PRN (05:47)
[2016-08-24] MEDS: PRILOSEC PO SCH (06:05)
[2016-08-24] MEDS: SYNTHROID PO SCH ×2 (06:05)
[2016-08-24] MEDS: IMDUR PO SCH (11:20)
[2016-08-24] MEDS: PLAVIX PO SCH (11:20)
[2016-08-24] MEDS: ELAVIL PO SCH ×2 (11:20→15:41)
[2016-08-24] MEDS: ASPIRIN EC PO SCH (11:20)
[2016-08-24] MEDS: PRINIVIL PO SCH (11:21)
[2016-08-24] MEDS: NORVASC PO SCH (11:21)
[2016-08-24] MEDS: MIRALAX PO SCH (11:21)
[2016-08-24] MEDS: TYLENOL PO PRN (11:21)
[2016-08-24] MEDS: COREG PO SCH (11:21)
[2016-08-24] MEDS ORDERED: ZOFRAN IV PRN (11:38)
[2016-08-24 15:37] VITALS: BP 82/43
--- NOTE | 2016-08-24 20:42 | DISCHARGE SUMMARY ---
ADMISSION DATE: 08/19/2016 DISCHARGE DATE: 08/24/2016 DISCHARGE DIAGNOSES: 1. Back pain chronic. 2. Chest pain resolved. GXT was negative. 3. Pneumonia improved. CONSULTATIONS: Cardiology. PROCEDURE: Stress test. BRIEF HOSPITAL COURSE: Patient is an 86-year-old female who was admitted as on the [facility]. Treated in the usual fashion. She uneventful hospital course. She continued to improve. On discharge she is awake, alert, in no distress. No changes were made in her home medications. She will continue breathing treatments as needed. Unfortunately, given her advanced age COPD as well as other chronic medical conditions, she certainly has a poor long-term prognosis. She will be discharged home on Levaquin 500 mg once a day for the next 4 days. We will also add azithromycin.
--- NOTE | 2016-08-27 22:21 | DISCHARGE SUMMARY ---
ADMISSION DATE: 08/19/2016 DISCHARGE DATE: 08/24/2016 DISCHARGE DIAGNOSES: 1. Right lower lobe pneumonia improving. 2. Leukocytosis improving, white count 14 on discharge 12 baseline. 3. Elevated D-dimer with negative pulmonary embolism workup. 4. Elevated troponin with known history of coronary artery disease and negative stress test during this hospital admission. 5. Hypothyroidism. CONSULTATIONS: Cardiology. PROCEDURES: Myocardial perfusion scan, negative. BRIEF HOSPITAL COURSE: The patient is an 86-year-old female was admitted as on the [facility], treated in usual fashion, placed on breathing treatments, antibiotics, oxygen. She was noted to have elevated troponin and this was worked up completely. Thankfully she had a negative stress test. She was also noted to have an elevated D-dimer which also was worked up was negative for pulmonary emboli. Her hospital course was prolonged secondary to her advanced age as well as her pneumonia and COPD. Thankfully she had an uneventful hospital course. On discharge although she was weak and tired she was able to ambulate with assistance. She has multiple family members who will come and stay with her. DISPOSITION: The patient will be discharged home with home health as well as family members. She will follow up in the office in 1 week sooner should symptoms worsen or return. She will be discharged home on antibiotics for the next 7 days. Continue her breathing treatments. No other changes made in her home medications.
== END 2016-08-24 16:30 | disposition home health service (06) | DRG 190 ==
LOC: P.ED 13:00 → P.MEDSURG 14:34 → OBSVTOIN 14:34
PROVIDERS: ADMIT Family Medicine; ATTEND Family Medicine
DX: J44.0 Chronic obstructive pulmonary disease with (acute) lower respiratory infection (principal); J18.9 Pneumonia, unspecified organism; I11.0 Hypertensive heart disease with heart failure; Z99.81 Dependence on supplemental oxygen; I50.9 Heart failure, unspecified; Z95.1 Presence of aortocoronary bypass graft; J44.1 Chronic obstructive pulmonary disease with (acute) exacerbation; J45.909 Unspecified asthma, uncomplicated; I25.10 Atherosclerotic heart disease of native coronary artery without angina pectoris; E03.9 Hypothyroidism, unspecified; K44.9 Diaphragmatic hernia without obstruction or gangrene; G47.33 Obstructive sleep apnea (adult) (pediatric); Z79.899 Other long term (current) drug therapy; Z79.02 Long term (current) use of antithrombotics/antiplatelets; Z79.82 Long term (current) use of aspirin; Z96.651 Presence of right artificial knee joint; Z82.49 Family history of ischemic heart disease and other diseases of the circulatory system
CPT/HCPCS: 36415; 71010; 71020; 71275; 78452; 80048; 80053; 82550; 83735; 83880; 84484; 85025; 85027; 85379; 87040; 93005; 93010; 93017; 93306; 93970; 94640; 94761; A9500; J2175; J2405; J7030; Q9967; 92610-GN

== ENCOUNTER 2017-02-23 21:42 | Inpatient (IN) ==
[2017-02-23] MEDS ORDERED: CARDIZEM IV ONE (21:55)
[2017-02-23] MEDS ORDERED: CARDIZEM ONE (21:58)
--- NOTE | 2017-02-23 22:15 | EKG Report ---
Test Performed on : 02/23/2017 9:52:23 PM Test Reason : Palpitations Blood Pressure : / mmHG Vent. Rate : 126 BPM Atrial Rate : 277 BPM P-R Int : 000 ms QRS Dur : 082 ms QT Int : 300 ms P-R-T Axes : 000 -14 -50 degrees QTc Int : 434 ms Atrial fibrillation. with rapid ventricular response. Minimal voltage criteria for LVH, may be normal variant Inferior infarct (cited on or before 08-JAN-2016) ST \T\ T wave abnormality, consider lateral ischemia Abnormal ECG When compared with ECG of 21-AUG-2016 14:48, Significant changes have occurred Unconfirmed Result
--- NOTE | 2017-02-23 22:27 | PROVIDER DOCUMENTATION ---
This chart was entered by Vale Meza Scribe, acting as scribe for Derrick Quiñones MD. HPI-Cardiac General - General Chief Complaint: Palpitations Stated Complaint: heart running away Time Seen by Provider: 02/23/17 21:45 Source: patient Allergies/Adverse Reactions: Patient Allergies Allergy/AdvReac Type Severity Reaction Status Date / Time codeine Allergy Severe ITCHING Verified 01/06/16 12:28 hydrocodone bitartrate * Allergy Severe ITCHING Verified 01/06/16 12:28 [From Lorjaxsont ] morphine Allergy Severe ITCHING Verified 01/06/16 12:28 Sulfa (Sulfonamide Allergy Severe NAUSEA/VOMI Verified 01/06/16 12:28 Antibiotics) TING Home Medications: Home Medication List Medication Instructions Recorded Confirmed Last Taken Type Amitriptyline [Elavil] 25 mg PO TID 05/26/13 02/23/17 07/26/16 07:00 History Atorvastatin Calcium [Lipitor] 80 mg PO HS 05/26/13 02/23/17 07/25/16 21:00 History Fluticasone/Salmeterol [Advair 2 puff INH BID 05/26/13 02/23/17 07/26/16 07:00 History 500-50 Diskus] Omeprazole [Prilosec] 20 mg PO BID 05/26/13 02/23/17 07/26/16 07:00 History Amlodipine Besylate [Norvasc] 5 mg PO DAILY 09/10/14 02/23/17 07/26/16 07:00 History Aspirin [Ecotrin] 81 mg PO 1200 09/10/14 02/23/17 07/25/16 12:00 History Isosorbide Mononitrate E.r. [Imdur] 30 mg PO HS 09/10/14 02/23/17 07/26/16 07: 00 History Carvedilol 6.25 mg PO DAILY 08/25/15 02/23/17 07/26/16 07:00 History Albuterol Sulfate Inhaler 2 puff INH PRN PRN 07/20/16 02/23/17 07/25/16 23:00 History [Ventolin Hfa] Clopidogrel Bisulfate [Plavix] 75 mg PO DAILY 07/20/16 02/23/17 07/26/16 07:00 History LISINOpril [Prinivil] 40 mg PO DAILY 07/20/16 02/23/17 07/26/16 07:00 History Levothyroxine Sodium [Synthroid] 137 mcg PO DAILY 07/20/16 02/23/17 07/26/16 07: 00 History Tramadol HCl [Ultram] 50 mg PO Q4H PRN PRN #15 tablet 07/26/16 02/23/17 Unknown Rx - History of Present Illness-Cardiac Quality of Pain: reports: none Severity in ED: moderate Onset/Duration: 1-3 hours ago Timing: intermittent Palpitation Quality: fast/pounding heart beat Associated Symptoms: reports: denies symptoms Similar Symptoms Previously?: No Recently Seen Here or By Another Healthcare Provider: No Review of Systems - Adult - REVIEW OF SYSTEMS - ADULT Constitutional: denies: chills, fever Eyes: reports: no symptoms reported Ears, Nose, Mouth & Throat: reports: no symptoms reported Cardiovascular: reports: palpitations. denies: chest pain Respiratory: reports: shortness of breath. denies: cough Gastrointestinal: denies: nausea, vomiting Genitourinary: reports: no symptoms reported Musculoskeletal: reports: no symptoms reported Integumentary: reports: no symptoms reported Neurological: reports: no symptoms reported Psychiatric: reports: no symptoms reported Endocrine: reports: no symptoms reported Hematologic/Lymphatic: reports: no symptoms reported Allergic/Immunologic: reports: no symptoms reported All Other Systems: Reviewed and Negative Past History - Adult - PAST MEDICAL HISTORY-ADULT Review of Records: reports: Nursing Assessment Review, Medications Reviewed Major Childhood Illnesses: reports: denies history Cardiovascular: reports: HTN, hyperlipidemia Respiratory: reports: asthma, COPD, sleep apnea Genitourinary: reports: kidney stones (hx of) Musculoskeletal: reports: osteoporosis Endocrine/Immune: reports: thyroid disorder - PRIOR SURGERIES/PROCEDURES Surgical/Procedure History: reports: recent surgery (Stents), appendectomy, cholecystectomy, hysterectomy, , joint replacement (Total knee replacement), other (Cataract Sx; carpal tunnel; bladder tac; cysts removed from abdomen) - IMMUNIZATION STATUS Childhood Immunizations: See Nurse Assessment Flu Vaccine: See Nurse Assessment - FAMILY HISTORY Family History: reviewed, not pertinent - SOCIAL HISTORY Smoking: non-smoker Substance Use: none/never Alcohol Use Frequency: never Physical Exam-General - PHYSICAL EXAM-ADULT Initial Vital Signs Reviewed: Yes - CONSTITUTIONAL General Appearance: appears well, alert, no apparent distress - RESPIRATORY Respiratory: chest non-tender, lungs clear, normal breath sounds - CARDIOVASCULAR Cardiovascular: tachycardia, irregularly irregular - GASTROINTESTINAL (ABDOMEN) Abdominal Exam: normal bowel sounds, non tender, soft - SKIN Integumentary: normal color, normal turgor, warm/dry - PSYCHIATRIC Psych/Mental Status: normal mood/affect, normal thought content, normal thought process, oriented x 3 Progress - PLAN OF CARE/RESULTS Progress/Plan/Lab Results: Vital Signs - 8 hr 02/23/17 21:44 02/23/17 22:12 Temperature 97.4 F L 98.0 F Pulse Rate 155 H 75 Respiratory Rate 18 18 Blood Pressure 158/101 O2 Sat by Pulse Oximetry 96 Laboratory Results - last 24 hr 02/23/17 02/23/17 02/23/17 22:23 22:23 22:23 WBC 13.11 H RBC 3.93 L Hgb 12.1 Hct 36.6 L MCV 93.1 MCH 30.8 MCHC 33.1 RDW Std Deviation 14.3 Plt Count 399 MPV 9.5 Immature Gran % (Auto) 0.3 Neut % (Auto) 57.3 Lymph % (Auto) 31.7 [place] % (Auto) 9.5 H Eos % (Auto) 1.0 Baso % (Auto) 0.2 Immature Gran # (Auto) 0.04 Neut # (Auto) 7.51 H Lymph # (Auto) 4.15 H [place] # (Auto) 1.25 H Eos # (Auto) 0.13 Baso # (Auto) 0.03 PT INR APTT (Factor Assay) Sodium 130 L Potassium 3.9 Chloride 95 L Carbon Dioxide 23 L Anion Gap 12 BUN 15 Creatinine 0.6 Estimated GFR/1.73 m2 > 60 BUN/Creatinine Ratio 25 Glucose 130 H Calculated Osmolality 263 Calcium 8.8 Total Bilirubin < 0.15 L AST 22 ALT 22 Alkaline Phosphatase 60 Creatine Kinase 58 Troponin T < 0.010 Total Protein 6.8 Albumin 4.1 Globulin 3.0 Albumin/Globulin Ratio 2.0 02/23/17 22:23 WBC RBC Hgb Hct MCV MCH MCHC RDW Std Deviation Plt Count MPV Immature Gran % (Auto) Neut % (Auto) Lymph % (Auto) [place] % (Auto) Eos % (Auto) Baso % (Auto) Immature Gran # (Auto) Neut # (Auto) Lymph # (Auto) [place] # (Auto) Eos # (Auto) Baso # (Auto) PT 12.7 INR 0.92 APTT (Factor Assay) 35.2 Sodium Potassium Chloride Carbon Dioxide Anion Gap BUN Creatinine Estimated GFR/1.73 m2 BUN/Creatinine Ratio Glucose Calculated Osmolality Calcium Total Bilirubin AST ALT Alkaline Phosphatase Creatine Kinase Troponin T Total Protein Albumin Globulin Albumin/Globulin Ratio Orders Category Date Time Status Admit - [facility] Routine AdmDCTranf 02/23/17 23:08 Ordered Saline Loc NOW Care 02/23/17 21:54 Active CHEST-2 VIEWS [RAD] Stat Exams 02/23/17 21:55 Taken CBC WITH ELECTRONIC DIFF [HEME] Stat Lab 02/23/17 22:23 Completed CK PROFILE [SP CHEM] Stat Lab 02/23/17 22:23 Completed COMPREHENSIVE METABOLIC PANEL [CHEM] Stat Lab 02/23/17 22:[address] Com[address]IME WITH INR [address] [COAG] Stat Lab 02/23/17 22:[address] [COAG] Stat Lab 02/23/17 22:23 Completed TROPONIN T Stat Lab 02/23/17 22:23 Completed Diltiazem [Cardizem] Med 02/23/17 21:55 Discontinued 10 mg IV NOW ONE Diltiazem [Cardizem] Med 02/23/17 21:58 Discontinued 25 mg .ROUTE .STK-MED ONE EKG [EKG] Stat Ther 02/23/17 21:55 Draft Transfer/Admit Order [TRANSFER] Routine Transfer 02/23/17 23:10 Ordered Result Diagrams: 02/23/17 22:23 02/23/17 22:23 - REASSESSMENT Reassessment #1 Time Reassessed: 23:17 Status: improving (discussion about admission to stabalize her so that 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 Ferguson(hospitalist) Time Discussed: 23:01 Consult Disposition: Admit Departure - Departure Date of Disposition Decision: 02/23/17 Time of Disposition Decision: 23:18 DIAGNOSIS: Atrial fibrillation with RVR Disposition: ADMITTED INPATIENT 09 Certified Medical Emergency: Emergent Condition: Stable Referrals and Follow-Ups: Akin Padilla MD [Primary Care Provider] - - Critical Care Note This patient required my direct & personal management of CC.: Yes Total Time (mins): 10 Critical Care Statement: This patient required my direct personal management to treat or rule out processes, the absence of which, could potentiallly result in sudden, clinically significant life or limb threatening deterioration. This chart was documented by the indicated scribe, (Vale Meza Scribe) and accurately reflects the services I performed and decisions made by me, Derrick Quiñones MD, as attested by the provider's signature.
[2017-02-23 22:28] LABS: MANUAL DIFF NEEDED? NO
[2017-02-23 22:36] LABS: BASO% 0.2 % (0.0-0.8); EOS# 0.13 X1000 (0.0-0.7); HEMATOCRIT 36.6 % (37.0-47.0); HEMOGLOBIN 12.1 g/dL (12.0-16.0); IMM GRAN# 0.04 X1000 (0.0-0.04); IMM GRAN% 0.3 % (0.0-0.5); LYMPH# 4.15 X1000 (1.2-3.4); LYMPH% 31.7 % (20.5-51.1); MCH 30.8 PG (27-31); MCHC 33.1 g/dL (33-37); MCV 93.1 FL (81-99); MONO# 1.25 X1000 (0.11-0.59); MONO% 9.5 % (1.7-9.3); MPV 9.5 FL (7.4-10.4); NEUT% 57.3 % (42.2-75.2); PLT 399 X1000 (130-400); RBC 3.93 XMIL (4.2-5.4)
[2017-02-23 22:57] LABS: AGAP 12; ALBUMIN 4.1 g/dL (3.5-5.0); ALKALINE PHOSPHATASE 60 U/L (32-104); BUN 15 mg/dL (8-22); CALCIUM 8.8 mg/dL (8.8-10.2); CHLORIDE 95 mmol/L (98-107); CK PROFILE 58 U/L (24-173); COSMO 263; GOT 22 U/L (10-30); GPT 22 U/L (10-36); POTASSIUM 3.9 mmol/L (3.5-5.1); SODIUM 130 mmol/L (136-145); TCO2 23 mmol/L (25-35); TOTAL BILIRUBIN < 0.15 mg/dL (0.20-1.00); TOTAL PROTEIN 6.8 g/dL (6.3-8.3)
[2017-02-23 23:01] LABS: INR 0.92 (0.86-1.15); PROTIME 12.7 Seconds (12.1-15.5)
[2017-02-23 23:02] LABS: PTT PL 35.2 Seconds (22.6-43.9)
--- NOTE | 2017-02-24 06:21 | Diag Imaging Result Doc PS360 ---
EXAM: CHEST-2 VIEWS HISTORY: CP TECHNIQUE: COMPARISON: 08/23/2016 FINDINGS: The lungs are well expanded. There are sternal wires and surgical clips. Heart is mildly enlarged. There is a small amount of scarring in the mid right lung. A granuloma is found in the left base. No pleural effusions. No pneumonia. IMPRESSION: No acute abnormality. Electronically signed by Sumeet Fernandes 02/24/2017 6:18 AM
[2017-02-24] MEDS: SYNTHROID PO SCH ×2 (09:00)
[2017-02-24] MEDS: NORVASC PO SCH (09:20)
[2017-02-24] MEDS: PLAVIX PO SCH (09:20)
[2017-02-24] MEDS: COREG PO SCH (09:20)
[2017-02-24] MEDS: PRINIVIL PO SCH (09:20)
[2017-02-24] MEDS: PRILOSEC PO SCH ×2 (09:20→21:41)
[2017-02-24 09:23] LABS: AGAP 8; BUN 14 mg/dL (8-22); CHLORIDE 101 mmol/L (98-107); COSMO 270; POTASSIUM 4.4 mmol/L (3.5-5.1); SODIUM 135 mmol/L (136-145); TCO2 26 mmol/L (25-35)
[2017-02-24] MEDS: MIRALAX PO SCH (10:52)
[2017-02-24] MEDS: ULTRAM PO PRN ×3 (11:02→21:41)
[2017-02-24] MEDS: ELAVIL PO SCH ×2 (12:31→21:41)
[2017-02-24] MEDS: ASPIRIN EC PO SCH (12:31)
--- NOTE | 2017-02-24 14:25 | HISTORY AND PHYSICAL ---
PRIMARY CARE PHYSICIAN: Akin Padilla MD CHIEF COMPLAINT: Palpitations. HISTORY OF PRESENT ILLNESS: Ms. Cavanaugh is an 86-year-old female with a past medical history of coronary artery disease status post PCI and coronary artery bypass surgery who presented to the Emergency Room on the date of admission reporting palpitations that began just prior to her arrival. She said that she had not had any associated pain. She reports that she did also notice prior to calling EMS that she had a fluctuating blood pressure and mild nausea and diaphoresis with the episode but no shortness of breath or associated chest pain. When she arrived in the Emergency Room she was found to be in atrial fibrillation with RVR with rate in the 150s. She was given a dose of IV Cardizem and has converted to normal sinus rhythm at present and is currently having no symptoms. She will be admitted for further observation and treatment. PAST MEDICAL HISTORY: 1. Asthma. 2. Coronary artery disease status post cardiac stent and coronary artery bypass. 3. COPD. 4. Hypertension. 5. Kidney stones. 6. UTI. 7. Hypothyroidism. 8. CHF. 9. VA times 2. PAST SURGICAL HISTORY: 1. Cholecystectomy. 2. Hysterectomy. 3. Cardiac stent. 4. Coronary artery bypass surgery in 1997. SOCIAL HISTORY: The patient is a nonsmoker. She denies any alcohol or drug use. FAMILY HISTORY: Positive for coronary artery disease in both of her parents. ALLERGIES: Codeine, hydrocodone, morphine, and sulfa. MEDICATIONS: 1. Aspirin 81 mg p.o. daily. 2. Norvasc 5 mg p.o. daily. 3. Elavil 25 mg p.o. t.i.d. 4. Albuterol 2 puffs p.r.n. wheezing. 5. Advair 500 mcg/50 mcg 2 puffs b.i.d. 6. Plavix 75 mg p.o. daily. 7. Coreg 6.25 mg p.o. daily. 8. Lipitor 80 mg p.o. at bedtime. 9. Ultram 50 mg p.o. every 4 hours p.r.n. pain. 10.Prilosec 20 mg p.o. b.i.d.. 11.Synthroid 137 mcg p.o. daily. 12.Lisinopril 40 mg p.o. daily. 13.Imdur 30 mg p.o. at bedtime. REVIEW OF SYSTEMS: Negative 10 point review of systems other than as previously stated in the HPI. LABS AND DIAGNOSTICS: CBC: White count is 13.11, hemoglobin and hematocrit 12.1 and 36.6, and platelets 399. BNP: Sodium is 130, potassium 3.9, chloride 95, CO2 23, BUN 15, creatinine 0.6, and glucose 130. CPK and troponin are within normal limits. Chest x-ray: No acute abnormality. EKG showed atrial fibrillation with RVR originally. Telemetry now is normal sinus with rate in the 60s to 70s. Chest x-ray shows no acute abnormality. PHYSICAL EXAMINATION: VITAL SIGNS: Temperature is 98.4, pulse 63, respirations 18, blood pressure 143/60, and O2 saturation 100% on 2 L per nasal cannula. HEENT: Normocephalic, atraumatic. Mucous membranes are moist. NECK: Supple. No JVD. CHEST: Bilateral breath sounds are clear. Respirations unlabored. No accessory muscle use noted. CARDIOVASCULAR: Normal S1 and S2. ABDOMEN: The abdomen is soft and nontender and nondistended. Positive bowel sounds. EXTREMITIES: No evidence of clubbing, cyanosis, or edema. NEURO: The patient is alert and oriented times 4 with no neurological deficits noted. ASSESSMENT AND PLAN: 1. New onset atrial fibrillation. The patient was converted with one dose of Cardizem IV and is currently asymptomatic. We will investigate etiologies. We will perform serial cardiac enzymes as well as check a TSH, MAG, and repeat her BMP due to her hyponatremia. 2. Coronary artery disease status post percutaneous coronary intervention and coronary artery bypass surgery. We will continue her current medications including Plavix and her statin and we will perform serial cardiac enzymes. She denies any chest pain or associated symptoms. 3. Hypothyroidism. We will continue her medication and check a TSH. 4. Reported heart failure. We will continue to follow. She is asymptomatic at this time. We will continue with her beta juan and KINA inhibitor. 5. Asthma. This is stable. We will continue her medications. 6. Hyponatremia. We will recheck and treat accordingly. 7. Hypertension. We will continue her home medications. Further orders pending physician's evaluation. Dictated by MARK Ledesma for Chandler Mejia MD cc: MARK Ledesma MD Gregory S. Cheatham, MD
[2017-02-24] MEDS: DUONEB (A & A) INH SCH ×2 (20:18→23:04)
[2017-02-24] MEDS: BENADRYL PO SCH (21:40)
[2017-02-24] MEDS: LIPITOR PO SCH (21:41)
[2017-02-24] MEDS: IMDUR PO SCH (21:41)
[2017-02-25] MEDS: ELAVIL PO SCH ×3 (05:14→20:59)
[2017-02-25] MEDS: ULTRAM PO PRN ×2 (05:19→20:59)
[2017-02-25] MEDS: SYNTHROID PO SCH ×2 (06:03→06:04)
[2017-02-25 07:00] LABS: AGAP 8; BUN 16 mg/dL (8-22); CALCIUM 8.3 mg/dL (8.8-10.2); CHLORIDE 96 mmol/L (98-107); COSMO 263; POTASSIUM 4.8 mmol/L (3.5-5.1); SODIUM 131 mmol/L (136-145); TCO2 27 mmol/L (25-35)
[2017-02-25] MEDS: PLAVIX PO SCH (09:06)
[2017-02-25] MEDS: COREG PO SCH (09:06)
[2017-02-25] MEDS: BENADRYL PO SCH ×2 (09:06→21:00)
[2017-02-25] MEDS: PRILOSEC PO SCH ×2 (09:06→21:00)
[2017-02-25] MEDS: NORVASC PO SCH (09:06)
[2017-02-25] MEDS: MIRALAX PO SCH (09:06)
[2017-02-25] MEDS: PRINIVIL PO SCH (09:07)
[2017-02-25] MEDS: ASPIRIN EC PO SCH (12:13)
[2017-02-25] MEDS ORDERED: COREG PO ONE (14:30)
--- NOTE | 2017-02-25 16:13 | PROGRESS NOTE ---
DATE: 02/25/2017 SUBJECTIVE: This patient states that she is feeling better. She is not complaining of chest pain or shortness of breath. No palpitations. OBJECTIVE: Vital Signs: Temperature 98.3 degrees, pulse 65, respiratory rate 17, blood pressure 132/58, oxygen saturation 94% on room air. HEENT: Head normocephalic. No trauma. PERRLA. Neck: Supple. No JVD. No masses. Central trachea. Chest: Clear to auscultation. No wheezing. No rales. Cardiovascular: Regular rhythm and rate. No murmurs. Abdomen: Soft, nontender, nondistended. No hepatosplenomegaly. Extremities: No edema. No clubbing. No cyanosis. Neurological: The patient is alert, oriented x3. No focal deficits. LABORATORY: Sodium 131, potassium 4.8, chloride 96, bicarbonate 27, BUN 16, creatinine 0.7, glucose 85, calcium 8.3. ASSESSMENT AND PLAN: 1. New onset atrial fibrillation, this patient was converted with 1 dose of Cardizem IV and is currently asymptomatic. She is still slightly hyponatremia, she had a coronary artery bypass graft done in 1997 and she had a stent placement back in October 2015. No history of atrial fibrillation, so I will stop the Plavix and also aspirin and I will put this patient on Eliquis, also I will increase the dose of Coreg and I will decrease the dose of lisinopril. I will monitor this patient for 1 or 2 more days and then I will discharge this patient. 2. Coronary artery disease status post percutaneous coronary intervention and coronary bypass surgery. Like I mentioned before, I will stop the aspirin and Plavix and since this patient has now atrial fibrillation, I will place this patient on Eliquis. Cardiac enzymes and lab work have been normal. 3. Hypothyroidism, continue with her medications. 4. Reported heart failure. I will continue with beta juan and KINA inhibitor. 5. Asthma. Stable. Continue with her medications. 6. Hyponatremia. Continue to monitor. 7. Hypertension, controlled. cc: Chandler Mejia MD
[2017-02-25] MEDS: DUONEB (A & A) INH PRN (19:33)
[2017-02-25] MEDS: ELIQUIS PO SCH (20:59)
[2017-02-25] MEDS: LIPITOR PO SCH (20:59)
[2017-02-25] MEDS: IMDUR PO SCH (20:59)
[2017-02-26] MEDS: SYNTHROID PO SCH ×2 (06:07)
[2017-02-26] MEDS: ELAVIL PO SCH (06:07)
[2017-02-26] MEDS: DUONEB (A & A) INH PRN (06:22)
--- NOTE | 2017-02-26 07:25 | EKG Report ---
Test Performed on : 02/23/2017 11:18:04 PM Test Reason : routine Blood Pressure : / mmHG Vent. Rate : 070 BPM Atrial Rate : 070 BPM P-R Int : 144 ms QRS Dur : 086 ms QT Int : 380 ms P-R-T Axes : 027 -14 019 degrees QTc Int : 410 ms Undetermined rhythm Minimal voltage criteria for LVH, may be normal variant Borderline ECG When compared with ECG of 23-FEB-2017 23:16, (Unconfirmed) Current undetermined rhythm precludes rhythm comparison, needs review Nonspecific T wave abnormality, improved in Anterior leads Unconfirmed Result
[2017-02-26 07:56] LABS: AGAP 10; BUN 18 mg/dL (8-22); CALCIUM 8.2 mg/dL (8.8-10.2); CHLORIDE 93 mmol/L (98-107); COSMO 255; POTASSIUM 5.3 mmol/L (3.5-5.1); SODIUM 126 mmol/L (136-145); TCO2 24 mmol/L (25-35)
[2017-02-26] MEDS: MIRALAX PO SCH (08:29)
[2017-02-26] MEDS: ELIQUIS PO SCH ×2 (08:30→21:04)
[2017-02-26] MEDS: PRINIVIL PO SCH (08:30)
[2017-02-26] MEDS: COREG PO SCH (08:30)
[2017-02-26] MEDS: PRILOSEC PO SCH ×2 (08:30→21:04)
[2017-02-26] MEDS: BENADRYL PO SCH ×2 (08:30→21:04)
[2017-02-26] MEDS: NORVASC PO SCH (08:30)
[2017-02-26] MEDS: IMDUR PO SCH (21:04)
[2017-02-26] MEDS: LIPITOR PO SCH (21:04)
[2017-02-26] MEDS: ULTRAM PO PRN (21:05)
[2017-02-27] MEDS: SYNTHROID PO SCH ×2 (06:17)
[2017-02-27] MEDS: DUONEB (A & A) INH PRN ×2 (06:33→21:04)
[2017-02-27 06:56] LABS: HEMOGLOBIN 11.6 g/dL (12.0-16.0); MCH 30.5 PG (27-31); MCHC 32.2 g/dL (33-37); MCV 94.7 FL (81-99); MPV 9.7 FL (7.4-10.4); RBC 3.8 XMIL (4.2-5.4)
[2017-02-27 07:13] LABS: AGAP 10; ALBUMIN 3.3 g/dL (3.5-5.0); ALKALINE PHOSPHATASE 56 U/L (32-104); BUN 16 mg/dL (8-22); CALCIUM 8.6 mg/dL (8.8-10.2); CHLORIDE 96 mmol/L (98-107); COSMO 258; GOT 24 U/L (10-30); GPT 20 U/L (10-36); POTASSIUM 4.9 mmol/L (3.5-5.1); SODIUM 128 mmol/L (136-145); TCO2 23 mmol/L (25-35); TOTAL PROTEIN 5.8 g/dL (6.3-8.3)
[2017-02-27] MEDS: NORVASC PO SCH (09:36)
[2017-02-27] MEDS: PRILOSEC PO SCH ×2 (09:36→20:21)
[2017-02-27] MEDS: PRINIVIL PO SCH (09:36)
[2017-02-27] MEDS: ELIQUIS PO SCH ×2 (09:36→20:21)
[2017-02-27] MEDS: BENADRYL PO SCH ×2 (09:36→20:21)
[2017-02-27] MEDS: COREG PO SCH (09:36)
[2017-02-27] MEDS: MIRALAX PO SCH (09:36)
[2017-02-27] MEDS ORDERED: SAMSCA PO ONE (10:09)
[2017-02-27] MEDS ORDERED: LANOXIN IV SCH (10:15)
--- NOTE | 2017-02-27 10:35 | EKG Report ---
Test Performed on : 02/27/2017 10:12:31 AM Test Reason : afib Blood Pressure : / mmHG Vent. Rate : 062 BPM Atrial Rate : 062 BPM P-R Int : 172 ms QRS Dur : 094 ms QT Int : 396 ms P-R-T Axes : 000 -20 -02 degrees QTc Int : 401 ms Normal sinus rhythm. Minimal voltage criteria for LVH, may be normal variant Inferior infarct , age undetermined Possible Anterolateral infarct , age undetermined Abnormal ECG When compared with ECG of 23-FEB-2017 23:18, (Unconfirmed) Previous ECG has undetermined rhythm, needs review Borderline criteria for Anterolateral infarct are now present T wave inversion now evident in Anterior leads Unconfirmed Result
--- NOTE | 2017-02-27 11:05 | PROGRESS NOTE ---
DATE: 02/27/2017 SUBJECTIVE: The patient notes that she is feeling a little bit better. She is having less chest pain. Denies any current palpitations. States overall she is feeling better. Thinks her heart rate has slowed down. OBJECTIVE: Vital Signs: Temperature 98 degrees, pulse 86, respiratory rate 18, blood pressure 109/50, saturation 100% on 2L. General: Patient is awake, alert. She is currently in no respiratory distress. Speech is regular. Memory intact. Neck: Supple. Cardiovascular: Irregular rate, irregular rhythm. Chest: Relatively clear. Positive rhonchi, otherwise clear. Abdomen: Soft. Extremities: Moves all extremities. Neurologic: No focal changes. Skin: Warm and dry. No rashes. LABORATORY: Sodium 128. ASSESSMENT: 1. New onset atrial fibrillation. Patient has seemingly converted to sinus. 2. Known coronary artery disease. She had bypass graft in 1997 and a stent placed in October 2015. Currently, her Plavix has been stopped and she is on Eliquis, Coreg, and lisinopril. 3. Hypothyroidism. 4. History of congestive heart failure, systolic. 5. Asthma. 6. Hyponatremia. Sodiums are better, at 130. 7. Hypertension, controlled. PLAN: We will ask Cardiology for assistance. Given Ms. Cavanaugh' age, she certainly needs to be on anticoagulation. She is currently on Eliquis. We will discuss with Cardiology whether she needs a repeat heart catheterization or to follow outpatient. Hopefully, home today or tomorrow. cc: Akin Padilla MD
[2017-02-27] MEDS: PLAVIX PO SCH (11:10)
[2017-02-27] MEDS: CARDIZEM PO SCH ×3 (11:10→20:22)
[2017-02-27] MEDS: TYLENOL PO PRN (13:07)
[2017-02-27 17:43] LABS: AGAP 11; BUN 21 mg/dL (8-22); CALCIUM 8.5 mg/dL (8.8-10.2); CHLORIDE 94 mmol/L (98-107); COSMO 261; POTASSIUM 4.9 mmol/L (3.5-5.1); SODIUM 128 mmol/L (136-145); TCO2 24 mmol/L (25-35)
--- NOTE | 2017-02-27 18:33 | CONSULTATION ---
DATE OF CONSULTATION: 02/27/2017 REASON FOR CONSULTATION: Palpitations. HISTORY: Ms. Cavanaugh is an 86-year-old female who presented to the hospital last night with complaints of sudden onset of palpitations. The patient was just resting, watching TV, when it happened. She presented on February 23 with the symptoms. She was brought right away by EMS and, upon presentation, her initial ECG showed atrial fibrillation with rapid response. She was given IV Cardizem and eventually she converted back to sinus rhythm. The patient admitted to having one episode of nausea and diaphoresis. She denied having any chest pain. She had been noticing some headaches and elevated blood pressure. PAST MEDICAL HISTORY: Her past history is positive for coronary heart disease. She had a stent in December of 2015 followed by an episode of cardiogenic shock that required reassessment of her stent and this was found to be patent. At that time, the patient had transient heart block requiring transcutaneous pacemaker and intravenous pacemaker. She has had previous coronary bypass surgery. She has COPD, hypertension, hypothyroidism, CHF, and diverticulitis. She had a previous myocardial infarction. PAST SURGICAL HISTORY: Past surgical history besides the bypass surgery includes knee surgery, bladder surgery, hysterectomy, and cholecystectomy. SOCIAL HISTORY: She is , lives in a senior custodial home in independent living. She is not a smoker nor a drinker. She has two daughters. One lives in [place]. One lives in [place]. FAMILY HISTORY: Both parents had coronary heart disease. ALLERGIES: Positive for codeine, hydrocodone, morphine, sulfa. CURRENT MEDICATIONS: 1. Plavix 75 daily. 2. Carvedilol 6.25 daily. 3. Lipitor 80 daily. 4. Tramadol 50 daily. 5. Omeprazole 20 twice a day. 6. Levothyroxine 137 daily. 7. Lisinopril 40 daily. 8. Isosorbide mononitrate 30 daily. 9. Aspirin 81 daily. 10.Amlodipine 5 mg daily. 11.Elavil 25 three times a day. Since admission she has been placed on Eliquis. Aspirin and Plavix have been discontinued. REVIEW OF SYSTEMS: Noncontributory other than what I have said. She does have some moderate exertional dyspnea. PHYSICAL EXAMINATION: Vital signs: Blood pressure 109/50, pulse 66, temperature 98.7, respirations 16. General: She is awake, alert, oriented, in no distress. HEENT: Unremarkable. The patient is elderly. Neck: She does have prominent neck veins. Chest: Clear to auscultation and percussion. Cardiovascular: Heart sounds are regular and rhythmic. I do not hear any gallop or murmur. Abdomen: Nontender. Soft. No masses. No hepatomegaly. Extremities: Show decreased pulses. No edema. Neurologic: Follows commands, moves four extremities. LABORATORY DATA: Sodium 128, potassium 4.9, BUN 16, creatinine 0.8, albumin 3.3. CK and troponin negative. Hemoglobin 11.6. The 12-lead EKG shows sinus rhythm with diffuse nonspecific T wave abnormalities and poor R wave progression across the precordial leads, left axis. IMPRESSION: 1. Patient presenting with paroxysmal atrial fibrillation which has converted back to sinus rhythm. 2. History of severe coronary heart disease. Previous stent to marginal system. Previous coronary bypass surgery several years ago. 3. Hyponatremia. 4. Hypertension. 5. Chronic obstructive pulmonary disease. RECOMMENDATIONS: From a cardiology viewpoint, I would probably add Cardizem at low dose. I would suggest to add Plavix to her Eliquis. She will probably benefit by doing a followup myocardial perfusion stress test to make sure that she does not have coronary ischemia in the lateral wall of the left ventricle. She had a stent to the vein graft to the marginal system. Further advice will be forthcoming. Thank you for the opportunity to participate in her evaluation. Best regards, cc: Lee Peña MD
[2017-02-27] MEDS: LIPITOR PO SCH (20:21)
[2017-02-27] MEDS: IMDUR PO SCH (20:22)
[2017-02-27] MEDS: ULTRAM PO PRN (23:25)
[2017-02-28] MEDS: CARDIZEM PO SCH ×2 (01:33→09:54)
--- NOTE | 2017-02-28 04:42 | EKG Report ---
Test Performed on : 02/28/2017 04:32:01 AM Test Reason : afib Blood Pressure : / mmHG Vent. Rate : 066 BPM Atrial Rate : 066 BPM P-R Int : 186 ms QRS Dur : 102 ms QT Int : 428 ms P-R-T Axes : -14 -20 016 degrees QTc Int : 448 ms Normal sinus rhythm. ST \T\ T wave abnormality, consider anterior ischemia Abnormal ECG When compared with ECG of 27-FEB-2017 10:12, (Unconfirmed) Borderline criteria for Anterolateral infarct are no longer present Nonspecific T wave abnormality, improved in Lateral leads Unconfirmed Result
[2017-02-28] MEDS: SYNTHROID PO SCH ×2 (06:02)
[2017-02-28] MEDS ORDERED: VENTOLIN HFA INH PRN (06:28)
[2017-02-28 06:32] LABS: AGAP 8; BUN 18 mg/dL (8-22); CALCIUM 8.6 mg/dL (8.8-10.2); CHLORIDE 97 mmol/L (98-107); COSMO 262; MAGNESIUM 2.3 mg/dL (1.5-2.7); POTASSIUM 4.6 mmol/L (3.5-5.1); SODIUM 130 mmol/L (136-145); TCO2 25 mmol/L (25-35)
[2017-02-28] MEDS: ADVAIR 500/50 DISKUS INH SCH ×2 (08:14→20:01)
--- NOTE | 2017-02-28 08:56 | PROGRESS NOTE ---
DATE: 02/27/2017 SUBJECTIVE: The patient denies any current complaints. States that she is starting to feel better. Denies any chest pain, palpitations. OBJECTIVE: Vital Signs Reviewed: Temperature 98 degrees, pulse 60, respiratory 16, BP 157/56, satting 100% on 2 L. General: Patient is awake, alert, currently in no respiratory distress, pleasant. Neck: Supple. CV: Regular rate. Chest: Relatively clear. Abdomen: Soft. Extremities: Moves all extremities. Neurologic: No focal changes. ASSESSMENT: 1. Paroxysmal atrial fibrillation currently converted back to sinus. 2. Known coronary artery disease with bypass grafting some years ago. 3. Hyponatremia. The patient has had difficulty with sodium over the last several years. Total of 130 is very close to her known typical baseline. 4. Hypertension, stable. 5. Chronic obstructive pulmonary disease. 6. Chronic back pain. PLAN: Certainly agree with cardiology of low-dose Cardizem as well as Eliquis. They have suggested adding Plavix to this. She will have a stress test in the morning and then hopefully home after that. cc: Akin Padilla MD
[2017-02-28] MEDS ORDERED: CARDIZEM CD PO SCH (09:00)
--- NOTE | 2017-02-28 09:39 | EKG Report ---
Test Performed on : 02/28/2017 09:17:02 AM Test Reason : ASHD s/p CABG s/p stent SVG OM December 2015 Blood Pressure : / mmHG Vent. Rate : 066 BPM Atrial Rate : 066 BPM P-R Int : 198 ms QRS Dur : 088 ms QT Int : 398 ms P-R-T Axes : 033 014 021 degrees QTc Int : 417 ms Normal sinus rhythm. Possible Inferior infarct (cited on or before 28-FEB-2017) Abnormal ECG When compared with ECG of 28-FEB-2017 09:12, (Unconfirmed) Nonspecific T wave abnormality no longer evident in Lateral leads Unconfirmed Result
[2017-02-28] MEDS: PLAVIX PO SCH (09:54)
[2017-02-28] MEDS: PRINIVIL PO SCH (09:54)
[2017-02-28] MEDS: PRILOSEC PO SCH ×2 (09:54→20:16)
[2017-02-28] MEDS: NORVASC PO SCH (09:55)
[2017-02-28] MEDS: MIRALAX PO SCH (09:56)
[2017-02-28] MEDS: COREG PO SCH (09:56)
[2017-02-28] MEDS: ELIQUIS PO SCH ×2 (09:56→20:16)
[2017-02-28] MEDS: BENADRYL PO SCH ×2 (09:57→20:16)
[2017-02-28] MEDS ORDERED: SAMSCA PO ONE (12:20)
[2017-02-28] MEDS ORDERED: LEXISCAN ONE (12:23)
[2017-02-28] MEDS: TYLENOL PO PRN (13:34)
--- NOTE | 2017-02-28 16:45 | Diag Imaging Result Document ---
PROCEDURE NAME: MYOCARDIAL PERF SCAN, STR/REST - 02/28/2017 STUDY: Rest/stress Lexiscan myocardial perfusion study. INDICATION: Patient with chest pain, coronary artery disease, and atrial fibrillation. DESCRIPTION: The patient came into the nuclear lab on 02/28/2017 and received a rest injection of technetium 99 sestamibi 10.5 mCi. Multiple tomographic views of the heart were obtained at rest. Subsequently, the patient underwent infusion of Lexiscan 0.4 mg per protocol. At peak infusion he was injected with technetium 99 sestamibi 31.1 mCi. Multiple tomographic views of the cardiac structures were obtained following the completion of the protocol. The following is a summary of the electrocardiographic portion of the study. Resting ECG showed sinus rhythm with a rate of 71 beats per minute. Resting ECG shows early transition, diffuse ST-T abnormality, and inferior scar. Resting blood pressure 153/70. During infusion of Lexiscan the heart rate increased to a maximum of 94 beats per minute. Blood pressure dropped to 128/64. The patient reported moderate chest pain as well as palpitations. ECG showed no significant changes. Following the completion of infusion the heart rate and blood pressure returned back to her baseline. The chest pain dissipated. In summary, electrocardiograph response to the Lexiscan protocol was deemed to be nonspecific. Next is the summary of the myocardial perfusion portion of the study. Poststress tomographic views of the left ventricle showed a very trivial basal inferior wall defect. The rest images showed possible reversibility of this minimal trivial basal inferior wall defect. The polar plots revealed the same. There is possible inducible ischemic involving a very limited amount of myocardium at the base of the inferior wall. However, the possibility of attenuation artifact is also very likely. At any rate no significant ischemia is present. No significant scar appears to be present either. The gated SPECT shows a preserved ejection fraction of 78% with small ventricular volumes. The lung/heart ratio is normal. The TID is normal. SUMMARY: In summary, this study shows: 1. Probably normal poststress myocardial perfusion scan. There is no convincing scintigraphic evidence of significant pharmacologically-induced myocardial ischemia. There is a trivial basal inferior wall defect that may suggest reversibility, however, it is very minimal and very focal at the base of the inferior wall. Artifact is more likely. 2. Unremarkable electrocardiographic response to the infusion of Lexiscan. 3. Normal left ventricular systolic function with ejection fraction estimated at 78% with small ventricular volumes. No wall motion abnormality. Clinical correlation is recommended. cc: Lee Peña MD
[2017-02-28 19:30] LABS: AGAP 9; BUN 17 mg/dL (8-22); CALCIUM 8.8 mg/dL (8.8-10.2); CHLORIDE 101 mmol/L (98-107); COSMO 274; POTASSIUM 4.2 mmol/L (3.5-5.1); SODIUM 135 mmol/L (136-145); TCO2 26 mmol/L (25-35)
[2017-02-28] MEDS: LIPITOR PO SCH (20:16)
[2017-02-28] MEDS: IMDUR PO SCH (20:17)
[2017-02-28] MEDS: LOPRESSOR PO SCH (20:17)
[2017-02-28] MEDS: ULTRAM PO PRN (21:57)
[2017-03-01 05:43] LABS: AGAP 9; BUN 20 mg/dL (8-22); CALCIUM 8.8 mg/dL (8.8-10.2); CHLORIDE 100 mmol/L (98-107); COSMO 270; MAGNESIUM 2.4 mg/dL (1.5-2.7); POTASSIUM 4.8 mmol/L (3.5-5.1); SODIUM 133 mmol/L (136-145); TCO2 25 mmol/L (25-35)
[2017-03-01] MEDS: SYNTHROID PO SCH ×2 (06:22)
[2017-03-01] MEDS: PRILOSEC PO SCH ×2 (06:22→20:13)
[2017-03-01] MEDS: ELAVIL PO SCH (06:23)
[2017-03-01] MEDS: ADVAIR 500/50 DISKUS INH SCH ×2 (07:56→19:29)
--- NOTE | 2017-03-01 08:38 | PROGRESS NOTE ---
DATE: 03/01/2017 SUBJECTIVE: Patient did not discharge home last night after her GXT was normal secondary to palpitations. She was noted to have significant palpitations and her heart rate had increased into the 80s. Dr. Sue evaluated her rhythm strip and medications were changed. PHYSICAL EXAMINATION: Vital Signs: Temperature 97.5, pulse 64, respiratory rate 18, BP 143/58, saturation 98% on 2 L. General: Patient is awake, alert. She is currently in no respiratory distress. Notes that she slept better last night without any chest pains or palpitations. HEENT: Normocephalic, atraumatic. SHILPA. Neck: Supple. CV: Regular rate. Chest: Clear. Abdomen: Soft. Extremities: Moves all extremities. Neurologic: No changes. LABS: Sodium 133. ASSESSMENT: 1. Hyponatremia, improved. Most likely, this was secondary to her Elavil. This has been stopped and her sodium has remained much improved. 2. Atrial fibrillation. She currently is on Toprol and seems to be tolerating this better. Heart rates have been in the 60s since restarting this. 3. Hypertension, stable. 4. Hypothyroidism. 5. Chronic obstructive pulmonary disease. 6. Known coronary artery disease. PLAN: We will continue to keep Ms. Cavanaugh in the hospital throughout the day today and re- evaluate in the morning. We will follow her on telemetry today to make sure that the Toprol is keeping her heart rate controlled and we will follow. We will recheck her sodium, thyroid, and blood count in the a.m. If they are stable, then hopefully can discharge home at that point. Patient is aware and agrees. cc: Akin Padilla MD
[2017-03-01] MEDS: BENADRYL PO SCH ×2 (09:42→20:13)
[2017-03-01] MEDS: TYLENOL PO PRN (09:42)
[2017-03-01] MEDS: NORVASC PO SCH (09:42)
[2017-03-01] MEDS: LOPRESSOR PO SCH ×2 (09:42→20:13)
[2017-03-01] MEDS: PRINIVIL PO SCH (09:42)
[2017-03-01] MEDS: MIRALAX PO SCH (09:43)
[2017-03-01] MEDS: ELIQUIS PO SCH ×2 (09:43→20:13)
[2017-03-01] MEDS: PLAVIX PO SCH (09:43)
[2017-03-01] MEDS: ULTRAM PO PRN ×2 (09:43→20:20)
[2017-03-01] MEDS: LIPITOR PO SCH (20:13)
[2017-03-01] MEDS: IMDUR PO SCH (20:13)
[2017-03-02] MEDS: SYNTHROID PO SCH ×2 (06:10)
[2017-03-02] MEDS: PRILOSEC PO SCH (06:10)
[2017-03-02 06:24] LABS: HEMATOCRIT 39.1 % (37.0-47.0); HEMOGLOBIN 12.5 g/dL (12.0-16.0); MCH 30.7 PG (27-31); MCV 96.1 FL (81-99); MPV 9.9 FL (7.4-10.4); RBC 4.07 XMIL (4.2-5.4)
[2017-03-02 06:48] LABS: AGAP 9; ALBUMIN 3.4 g/dL (3.5-5.0); ALKALINE PHOSPHATASE 63 U/L (32-104); BUN 24 mg/dL (8-22); CALCIUM 8.5 mg/dL (8.8-10.2); CHLORIDE 100 mmol/L (98-107); COSMO 268; GOT 22 U/L (10-30); GPT 23 U/L (10-36); MAGNESIUM 2.1 mg/dL (1.5-2.7); POTASSIUM 4.4 mmol/L (3.5-5.1); SODIUM 132 mmol/L (136-145); TCO2 24 mmol/L (25-35); TOTAL PROTEIN 6.3 g/dL (6.3-8.3)
[2017-03-02 07:36] VITALS: BP 121/54
[2017-03-02] MEDS: ADVAIR 500/50 DISKUS INH SCH (08:09)
[2017-03-02] MEDS ORDERED: CARDIZEM PO SCH (09:00)
[2017-03-02] MEDS: PLAVIX PO SCH (09:05)
[2017-03-02] MEDS: NORVASC PO SCH (09:05)
[2017-03-02] MEDS: ELIQUIS PO SCH (09:05)
[2017-03-02] MEDS: LOPRESSOR PO SCH (09:06)
[2017-03-02] MEDS: BENADRYL PO SCH (09:06)
[2017-03-02] MEDS: PRINIVIL PO SCH (09:06)
[2017-03-02] MEDS: MIRALAX PO SCH (09:06)
--- NOTE | 2017-03-05 04:49 | DISCHARGE SUMMARY ---
ADMISSION DATE: 02/23/2017 DISCHARGE DATE: 03/02/2017 DISCHARGE DIAGNOSES: 1. Atrial fibrillation with rapid ventricular response currently in sinus. 2. Known coronary artery disease with a recent stress test in the hospital that was negative for acute disease. 3. Chronic obstructive pulmonary disease. 4. Hypertension. 5. Hyponatremia, improved after stopping Elavil. 6. Kidney stones by history. 7. Hypothyroidism. 8. Systolic congestive heart failure without current exacerbation. CONSULTATIONS: Cardiology. PROCEDURES: Cardiolite GXT. BRIEF HOSPITAL COURSE: The patient is an 86-year-old female, who presented to the emergency department and was subsequently diagnosed in atrial fibrillation. She was given Cardizem in the ER and converted back to sinus. Cardiology her heart rate drops into the upper 40s-50s. Cardizem stress test. Stress test was negative. However, after the test, her heart rate started racing on her again. She was started back on Toprol and her heart rate stayed in the upper 50s to low 60s. Therefore, Cardizem was not restarted. DISPOSITION: The patient will be discharged home. Should her heart start racing again, we would place her on low-dose Cardizem in addition to her metoprolol 25 mg twice a day. She will be discharged home Eliquis and Plavix which had been started and prescription given on aspirin. Otherwise, no changes were made in her home medications. INDICATION: 35 minutes was spent in discharge planning and instructions. cc: Akin Padilla MD
== END 2017-03-02 11:00 | disposition home health service (06) ==
LOC: P.ED 21:42 → SUATTDRO 23:47 → P.MEDSURG 23:47
PROVIDERS: ATTEND Family Medicine